=== PATIENT | male | born 1990 | race African-American/Black ===

== ENCOUNTER 2024-07-06 09:32 | Emergency (ER) | payer OTHER, SELFPAY ==
[2024-07-06 09:42] VITALS: BP 146/86; PULSE 88; RESP 20; TEMP 36.7; O2SAT 100
--- NOTE | 2024-07-06 09:44 | ED.SKABFB ---
HPI - Skin/Abscess/Foreign Bdy General Chief complaint: Skin/Abscess/Foreign Body Stated complaint: LT Hand Splinter Time Seen by Provider: 07/06/24 09:44 Source: patient Mode of arrival: ambulatory Limitations: no limitations History of Present Illness HPI narrative: 34 y/o male presented for c/o wooden splinter in the left hand sustained today while working on a cabinet at home. Says he attempted to remove it with pliars but splinter would not move. Denies decreased ROM, numbness, tingling or weakness. tetanus 2020 Related Data Home Medications ?Medication ?Instructions ?Recorded ?Confirmed ?Last Taken ?Type No Home Medications 07/06/24 07/06/24 Unknown History Allergies Allergy/AdvReac Type Severity Reaction Status Date / Time No Known Allergies Allergy Verified 07/06/24 09:42 Review of Systems Review of Systems: CONSTITUTIONAL: Denies body aches, fever, chills, or sweats. EYES: Denies visual changes, redness, or discharge. CARDIOVASCULAR: Denies chest pain, palpitations, or edema. GASTROINTESTINAL: Denies abdominal pain, nausea, vomiting, or diarrhea. SKIN: reports splinter left hand MUSCULOSKELETAL: Denies back pain, joint pain, or myalgia. NEUROLOGIC: Denies numbness, tingling, or weakness. PMFSH Comments At time of signature, I have reviewed and agree with nursing past medical, surgical, social and family history unless otherwise noted. Please see nursing chart for further information. There is no relevant family history pertinent to the presenting complaint Exam Narrative: GENERAL: Well-appearing ENT: Mucous membranes moist. CHEST: Even, unlabored. HEART: Regular rate and rhythm. SKIN: Warm, dry. Left hand palmar aspect space between 2nd and 3rd MCPs with <0.5cm open wound and what appears to be wooden FB protruding, palpable under skin. NEURO: Alert and oriented x3. Course Course Emergency Course: Patient is aware of diagnosis, understands and agrees to treatment plan. Anticipatory guidance given. Patient agrees to follow-up as directed and is aware of reasons to seek care at the emergency department. Portions of this record may have been created with voice recognition software Level of Care: Express Care Visit Vital Signs Vital signs: Vital Signs Temperature 98.1 F 07/06/24 09:42 Pulse Rate 88 07/06/24 09:42 Respiratory Rate 20 07/06/24 09:42 Blood Pressure 146/86 H 07/06/24 09:42 Pulse Oximetry 100 07/06/24 09:42 Oxygen Delivery Room Air 07/06/24 09:42 Temperature 98.1 F 07/06/24 09:42 Pulse Rate 88 07/06/24 09:42 Respiratory Rate 20 07/06/24 09:42 Blood Pressure 146/86 H 07/06/24 09:42 Pulse Oximetry 100 07/06/24 09:42 Oxygen Delivery Room Air 07/06/24 09:42 Reviewed Procedures Foreign Body Removal Foreign Body #1: Site: left and hand Description of foreign body: other (Wooden splinter) Technique: removal with forceps Confirmed by:: direct visualization, patient report and palpation Complications: none Foreign Body Removal Narrative: Pt declined use of lidocaine. 2cm wooden splinter removed using forceps without difficulty. Scant bleeding. Dressing applied. MDM - Skin/Abscess/Foreign Bdy MDM Narrative Medical decision making narrative: Discussed physical exam findings; wooden splinter FB removed without difficulty from Left palm. CMS intact following procedure. Dressing applied. Advised supportive measures and signs/symptoms to go to the ER. Pt is appropriate for outpt treatment and f/u. Differential Diagnosis Differential diagnosis: Likely abscess of skin or subcutaneous tissue, urticaria, herpes zoster, cellulitis and contact dermatitis Discharge Plan Discharge Clinical Impression: Foreign body in skin Patient Disposition: Home, Self-Care Condition: Stable Instructions: Antibiotic Form, Soft Tissue Foreign Body (ED) Additional Instructions: Keep the area clean and dry - cleanse with warm water and mild soap and allow to fully dry. Ok to apply neosporin to the site Keep it open to air (no bandages unless draining or at risk for contamination) Watch for worsening symptoms including pain, redness, swelling, streaking, pus/drainage, fever. Go to the ER with any of these symptoms or concerns. Follow up with primary care provider as needed. Patient Language: Swedish Prescriptions: New cephalexin 500 mg capsule 500 mg PO Q12H 5 Days Qty: 10 0RF No Action No Home Medications Follow-up/Referrals: PHYSICIAN,SECURITIES ATTORNEY [Primary Care Provider] - Time of Disposition: 10:12
--- OUTSIDE RECORDS SUMMARY | 2024-07-06 10:23 | XMS_ITS ---
Author Organization [facility] Address [address] [place] [address] Care Team Providers Care Fire Prevention Engineer Name Role Phone [facility] Unavailable [phone] REASON FOR VISIT Sexual Health / Urinary Encounters Encounter Location Date Provider Diagnosis [facility] [address] [place] [address] 09/19/2023 [facility] Plan Of Treatment No Information Progress Notes * Natalee ENGLANDOB:1990 (34 yo M)Acc No.[id number]:09/19/2023 IMPORT Patient: Angel SCOTT Provider: Rao BOND [place] :1990 A ge:33 Y S ex:Male Date:09/19/2023 Phone: Address:[address] [place], [place] [id number] Subjective: * Chief Complaints: * 1 . Sexual Health / Urinary. * Medical History: Objective: * Vitals: Assessment: Plan: * Treatment: * Billing Information: * Visit Code: * Procedure Codes: * Electronic signature of [facility] on 07/06/2024 at 11:23 AM EDT Sign off status: Pending * Provider: Rao BOND [place] Date: 0 09/19/2023 Generated for Fernando conrad/Lynette/Alexitting on: 07/06/2024 11:23 AM EDT
--- OUTSIDE RECORDS SUMMARY | 2024-07-06 10:23 | XMS_ITS | Patient Health Record ---
Author Organization [facility] Address [address] [place] [address] Care Team Providers Care Linoleum Installer Name Role Phone [facility] Unavailable [phone] Reason For Referral No Information Plan Of Treatment No Information
== END 2024-07-06 10:16 | disposition home or self-care (01) ==
PROVIDERS: Emergency Provider Nurse Practitioner Family
DX: S60.552A Superficial foreign body of left hand, initial encounter (principal); W45.8XXA Other foreign body or object entering through skin, initial encounter; Z86.16 Personal history of COVID-19
CPT/HCPCS: 99213; G0463